=== PATIENT | female | born 1955 | race Caucasian/White ===

== ENCOUNTER → 2016-09-22 | Outpatient (CLI) | payer OTHER | LOC: FIMAGING 10:52 | DX: Z12.31 Encounter for screening mammogram for malignant neoplasm of breast (principal) | CPT/HCPCS: G0202 ==

== ENCOUNTER 2018-10-06 15:49 | Observation (INO) | payer OTHER ==
[2018-10-06] MEDS ORDERED: NS 1,000 ML IV ONE (17:07)
[2018-10-06] MEDS ORDERED: KETOROLAC 15 MG/1 ML SDV IVP ONE (17:08)
--- NOTE | 2018-10-06 17:12 | EDPHY ---
H & P Stated Complaint: abd pain x1 year Time Seen by Provider: 10/06/18 16:58 HPI/ROS: CHIEF COMPLAINT: Abdominal pain x1 year, worse today HISTORY OF PRESENT ILLNESS: 63-year-old female complaining of abdominal pain intermittently for the past 1 year typically worse in the morning described as as band across her abdomen however in the past 24 hr she notes worsening and more focal abdominal pain the right lower quadrant. No nausea or vomiting. Bowel movements are described as loose but not necessarily as diarrhea. No melena or hematochezia. No nausea or vomiting. No urinary abnormality. Last oral intake was dinner last night. PRIMARY CARE PROVIDER:Dr. Alanna Gibbs REVIEW OF SYSTEMS: 10 systems reviewed and negative with the exception of the elements mentioned in the history of present illness PAST MEDICAL & SURGICAL HISTORY: Depression. SOCIAL HISTORY:nonsmoker, PHYSICAL EXAM (Prior to examination, patient consented to physical exam, hands were washed and my usual and customary physical exam procedures followed) 1) GENERAL: Well-developed, well-nourished, alert and oriented. Appears uncomfortable 2) HEAD: Normocephalic, atraumatic 3) HEENT: Pupils equal, round, reactive to light bilaterally. Sclera anicteric. Nasopharynx, oropharynx, clear, no lesions. Dry mucous membranes. 4) NECK: Full range of motion, no meningeal signs. 5) LUNGS: Clear auscultation bilaterally, no wheezes, no rhonchi, no retractions. 6) HEART: Regular rate and rhythm, no murmur, no heave, no gallop. 7) ABDOMEN: No guarding, tender to palpation right lower quadrant, negative Sarmiento's, negative Rovsing's, negative peritoneal sign, 8) MUSCULOSKELETAL: Moving all extremities, no focal areas of tenderness, no obvious trauma. No peripheral edema or discoloration. 9) BACK: No CVA tenderness, no midline vertebral tenderness, no fluctuance, no step-off, no obvious trauma, no visual or palpable abnormality. 10) SKIN: No rash, no petechiae. 11) Psychiatric: Patient is oriented X 3, there is no agitation. DIFFERENTIAL DIAGNOSIS: My differential diagnosis includes, but is not limited to, acute appendicitis, acute cholecystitis, bowel obstruction, acute pancreatitis, ovarian torsion, gastritis and urinary tract infection. The patient understands that this diagnosis is provisional and can never be 100% accurate. This is a partial list of diagnoses considered. These considerations are based on history, physical exam, past history and reassessment. - Personal History Current Tetanus Diphtheria and Acellular Pertussis (TDAP): Yes - Medical/Surgical History Hx Asthma: No Hx Chronic Respiratory Disease: No Hx Diabetes: No Hx Cardiac Disease: No Hx Renal Disease: No Hx Cirrhosis: No Hx Alcoholism: No Hx HIV/AIDS: No Hx Splenectomy or Spleen Trauma: No Other PMH: rheumatic fever as child, depression - Social History Smoking Status: Former smoker Constitutional: Initial Vital Signs Temperature (C) 36.6 C 10/06/18 16:08 Heart Rate 61 10/06/18 16:08 Respiratory Rate 16 10/06/18 16:08 Blood Pressure 129/90 H 10/06/18 16:08 O2 Sat (%) 93 10/06/18 16:08 O2 Delivery Mode Room Air Allergies/Adverse Reactions: hydrocodone Allergy (Severe, Verified 10/06/18 21:04) Other-Enter Comments Home Medications: Medication Instructions Recorded FLUoxetine [Prozac 20 MG (RX)] 20 mg PO HS 03/22/12 LORazepam [Ativan 2 mg tab] 2 mg PO BIDMEAL 03/22/12 Cholecalciferol Vit D3 [Vitamin D3 1,000 units PO DAILY 10/06/18 (*)] Cyanocobalamin (Vitamin B-12) 1,000 mcg PO DAILY 10/06/18 [Vitamin B-12] Magnesium Oxide [Magnesium Oxide 400 mg PO HS 10/06/18 400 mg (*)] buPROPion SR [Wellbutrin 100mg SR 100 mg PO DAILY 10/06/18 (*)] Medical Decision Making - Diagnostics Imaging Results: Imaging Impressions Abdomen CT 10/06/18 17:45 Impression: Bilateral congenital UPJ obstructions, left greater than right with a slightly asymmetrically delayed left nephrogram. Might the left side have acutely worsened? Consider nuclear medicine Lasix washout renogram study. Results discussed with MARGO Walsh at 7:05 PM. General information for patients regarding this examination can be found at [email or web address]. If you have questions or comments about this report, please contact me at [phone] (hospital) or [phone] (cell). Abdomen Ultrasound 10/06/18 20:01 Impression: Normal gallbladder. Obscured pancreas. Results discussed with Moshe Lawrence at 8:55 PM. Pelvic/Renal Ultrasound 10/06/18 20:01 Impression: Normal postmenopausal pelvic ultrasound. No source for pain identified. Results discussed with Moshe Lawrence at 20:55 PM. Images reviewed by myself ED Course/Re-evaluation: 5:09 p.m.: Patient is focally and exquisitely tender to palpation right lower quadrant. Discussed with patient concerns over possible acute appendicitis. Recommended diagnostic studies including CT imaging of the abdomen pelvis. She remains NPO since yesterday evening. 7:45 p.m.: Re-evaluation patient is asymptomatic, discussed her diagnostic results with her. She feels comfortable being discharged. 8:03 p.m.: Called the patient's bedside as she was complaining of exquisite abdominal pain "all over". I reassessed the patient and she is diffusely tender to palpation all quadrants. Will administer analgesia. She has listed hydrocodone allergy but notes that she is able tolerate morphine. Will obtain vaginal ultrasound as well as gallbladder ultrasound and plan on more than likely admission. 8:10 p.m.: Consultation with on-call Urology Dr. Lam agrees to consult with the patient on admission. 9:00 p.m.: Re-evaluation, patient continues to complain of pain. Will plan on admission. 9:13 p.m.: Pain management has been challenging in this patient. I consulted with hospitalist Dr. Milian at this time will admit patient. - Data Points Laboratory Results: Laboratory Results 10/06/18 17:10 10/06/18 17:10 10/06/18 10/06/18 10/06/18 17:20 17:10 17:10 WBC 13.70 10^3/uL H 10^3/uL (3.80-9.50) RBC 4.91 10^6/uL 10^6/uL (4.18-5.33) Hgb 16.1 g/dL g/dL (12.6-16.3) Hct 45.7 % % (38.0-47.0) MCV 93.1 fL fL (81.5-99.8) MCH 32.8 pg pg (27.9-34.1) MCHC 35.2 g/dL g/dL (32.4-36.7) RDW 11.6 % % (11.5-15.2) Plt Count 245 10^3/uL 10^3/uL (150-400) MPV 9.5 fL fL (8.7-11.7) Neut % (Auto) 76.7 % H % (39.3-74.2) Lymph % (Auto) 13.4 % L % (15.0-45.0) [place] % (Auto) 8.3 % % (4.5-13.0) Eos % (Auto) 0.6 % % (0.6-7.6) Baso % (Auto) 0.6 % % (0.3-1.7) Nucleat RBC Rel Count 0.0 % % (0.0-0.2) Absolute Neuts (auto) 10.50 10^3/uL H 10^3/uL (1.70-6.50) Absolute Lymphs (auto) 1.84 10^3/uL 10^3/uL (1.00-3.00) Absolute Monos (auto) 1.14 10^3/uL H 10^3/uL (0.30-0.80) Absolute Eos (auto) 0.08 10^3/uL 10^3/uL (0.03-0.40) Absolute Basos (auto) 0.08 10^3/uL 10^3/uL (0.02-0.10) Absolute Nucleated RBC 0.00 10^3/uL 10^3/uL (0-0.01) Immature Gran % 0.4 % % (0.0-1.1) Immature Gran # 0.06 10^3/uL 10^3/uL (0.00-0.10) Sodium 135 mEq/L mEq/L (135-145) Potassium 4.3 mEq/L mEq/L (3.5-5.2) Chloride 106 mEq/L mEq/L (97-110) Carbon Dioxide 21 mEq/l L mEq/l (22-31) Anion Gap 8 mEq/L mEq/L (6-14) BUN 14 mg/dL mg/dL (7-23) Creatinine 1.0 mg/dL mg/dL (0.6-1.0) Estimated GFR 56 Glucose 108 mg/dL H mg/dL (70-100) Calcium 9.9 mg/dL mg/dL (8.5-10.4) Total Bilirubin 1.3 mg/dL mg/dL (0.1-1.4) Conjugated Bilirubin 0.4 mg/dL mg/dL (0.0-0.5) Unconjugated Bilirubin 0.9 mg/dL mg/dL (0.0-1.1) AST 22 IU/L IU/L (14-46) ALT 18 IU/L IU/L (9-52) Alkaline Phosphatase 81 IU/L IU/L (38-126) Total Protein 7.8 g/dL g/dL (6.3-8.2) Albumin 4.5 g/dL g/dL (3.5-5.0) Lipase 48 IU/L IU/L (23-300) Urine Color YELLOW Urine Appearance CLEAR Urine pH 5.0 (5.0-7.5) Ur Specific [place] 1.017 (1.002-1.030) Urine Protein NEGATIVE (NEGATIVE) Urine Ketones 1+ H (NEGATIVE) Urine Blood NEGATIVE (NEGATIVE) Urine Nitrate NEGATIVE (NEGATIVE) Urine Bilirubin NEGATIVE (NEGATIVE) Urine Urobilinogen NEGATIVE EU EU (0.2-1.0) Ur Leukocyte Esterase TRACE H (NEGATIVE) Urine RBC 1-3 /hpf /hpf (0-3) Urine WBC 5-10 /hpf H /hpf (0-3) Ur Epithelial Cells TRACE /lpf /lpf (NONE-1+) Urine Bacteria TRACE /hpf H /hpf (NONE SEEN) Urine Mucus TRACE /lpf /lpf (NONE-1+) Urine Glucose NEGATIVE (NEGATIVE) Medications Given: Discontinued Medications Sodium Chloride (Ns) 1,000 mls @ 0 mls/hr IV EDNOW ONE; Wide Open PRN Reason: Protocol Stop: 10/06/18 17:08 Last Admin: 10/06/18 17:36 Dose: 1,000 mls Ketorolac Tromethamine (Toradol) 15 mg IVP EDNOW ONE Stop: 10/06/18 17:09 Last Admin: 10/06/18 17:35 Dose: 15 mg Morphine Sulfate (Morphine) 4 mg IVP EDNOW ONE Stop: 03/10/19 20:02 Last Admin: 10/06/18 20:06 Dose: 4 mg Morphine Sulfate (Morphine) 4 mg IVP EDNOW ONE Stop: 10/06/18 20:40 Last Admin: 10/06/18 20:41 Dose: 4 mg Ondansetron HCl (Zofran) 4 mg IVP EDNOW ONE Stop: 10/06/18 20:47 Last Admin: 10/06/18 20:46 Dose: 4 mg Departure - Departure Disposition: [facility] Inpatient Acute Clinical Impression: UPJ obstruction, congenital Abdominal pain Qualifiers: Abdominal location: generalized Qualified Code(s): R10.84 - Generalized abdominal pain Condition: Fair Referrals: Alanna Gibbs MD [Primary Care Provider] - As per Instructions
[2018-10-06 17:26] LABS: PLATELET COUNT 245 10^3/uL (150-400)
[2018-10-06] MEDS ORDERED: IOPAMIDOL (ISOVUE-300) 100 ML BTL ONE (17:57)
[2018-10-06] MEDS ORDERED: ONDANSETRON 4 MG/2 ML VIAL ONE (20:44)
[2018-10-06] MEDS ORDERED: ONDANSETRON 4 MG/2 ML VIAL IVP ONE (20:46)
[2018-10-06] MEDS ORDERED: ONDANSETRON 4 MG/2 ML VIAL IVP PRN (22:48)
[2018-10-06] MEDS ORDERED: oxyCODONE IR 5 MG TAB PO PRN (22:48)
[2018-10-06] MEDS ORDERED: ONDANSETRON DISINTEGRATING 4 MG TAB PO PRN (22:48)
[2018-10-06] MEDS ORDERED: ACETAMINOPHEN 325 MG TAB PO PRN (22:48)
[2018-10-06] MEDS ORDERED: KETOROLAC 30 MG/1 ML SDV IVP ONE (23:30)
--- NOTE | 2018-10-07 01:52 | PDGENHP ---
History and Physical - Chief Complaint Abdominal pain - History of Present Illness 63 yo F w/ hx of depression presents with acute on chronic abdominal pain. The patient tells me she has been experiencing lower abdominal pain intermittently for about 1 year. Tonight, however, she experiences a bout of severe LLQ pain. She describes this as the worst pain of her life. Upon arrival to the ED she was exquisitely tender. At the time of my evaluation she is pain free after medication. CT evaluation was notable only for bilateral UPJ obstruction, which is likely congenital. It is unclear if this is the cause of her pain. The remainder of her evaluation is unremarkable. Case discussed with Dr. Milian; records reviewed and summarized above. History Information - Allergies/Home Medication List Allergies/Adverse Reactions: hydrocodone Allergy (Severe, Verified 10/06/18 21:04) Other-Enter Comments Home Medications: FLUoxetine [Prozac 20 MG (RX)] 20 mg PO HS 03/22/12 [Last Taken 10/05/18 21:00] LORazepam [Ativan 2 mg tab] 2 mg PO BIDMEAL 03/22/12 [Last Taken 10/06/18 12:00] Cholecalciferol Vit D3 [Vitamin D3 (*)] 1,000 units PO DAILY 10/06/18 [Last Taken 10/06/18 09:00] Cyanocobalamin (Vitamin B-12) [Vitamin B-12] 1,000 mcg PO DAILY 10/06/18 [Last Taken 10/06/18 09:00] Magnesium Oxide [Magnesium Oxide 400 mg (*)] 400 mg PO HS 10/06/18 [Last Taken 10/05/18 21:00] buPROPion SR [Wellbutrin 100mg SR (*)] 100 mg PO DAILY 10/06/18 [Last Taken 05/17 09:00] I have personally reviewed and updated: family history, medical history - Past Medical History Additional medical history: Depression - Surgical History Additional surgical history: . Knee arthroscopy - Family History Positive for: cancer (Colon) - Social History Smoking Status: Former smoker Review of Systems Review of Systems: ROS: 10pt was reviewed & negative except for what was stated in HPI & below Physical Exam Physical Exam: Temp Pulse Resp BP Pulse Ox 36.8 C 55 L 18 120/56 L 91 L 10/06/18 22:16 10/06/18 23:00 10/06/18 23:00 10/06/18 22:16 10/06/18 23:00 O2 (L/minute) 1 Constitutional: no apparent distress, not in pain Eyes: PERRL, EOMI Ears, Nose, Mouth, Throat: moist mucous membranes, no oral mucosal ulcers Cardiovascular: regular rate and rhythym, no murmur, rub, or gallop Respiratory: no respiratory distress, clear to auscultation Gastrointestinal: normoactive bowel sounds, soft, non-tender abdomen Skin: warm, normal color Musculoskeletal: full muscle strength, no muscle tenderness Neurologic: AAOx3, CN II-XII Intact Psychiatric: interacting appropriately, not anxious Lab Data & Imaging Review 10/06/18 17:10 10/06/18 17:10 WBC 13.70 10^3/uL (3.80-9.50) H 10/06/18 17:10 RBC 4.91 10^6/uL (4.18-5.33) 10/06/18 17:10 Hgb 16.1 g/dL (12.6-16.3) 10/06/18 17:10 Hct 45.7 % (38.0-47.0) 10/06/18 17:10 MCV 93.1 fL (81.5-99.8) 10/06/18 17:10 MCH 32.8 pg (27.9-34.1) 10/06/18 17:10 MCHC 35.2 g/dL (32.4-36.7) 10/06/18 17:10 RDW 11.6 % (11.5-15.2) 10/06/18 17:10 Plt Count 245 10^3/uL (150-400) 10/06/18 17:10 MPV 9.5 fL (8.7-11.7) 10/06/18 17:10 Neut % (Auto) 76.7 % (39.3-74.2) H 10/06/18 17:10 Lymph % (Auto) 13.4 % (15.0-45.0) L 10/06/18 17:10 [place] % (Auto) 8.3 % (4.5-13.0) 10/06/18 17:10 Eos % (Auto) 0.6 % (0.6-7.6) 10/06/18 17:10 Baso % (Auto) 0.6 % (0.3-1.7) 10/06/18 17:10 Nucleat RBC Rel Count 0.0 % (0.0-0.2) 10/06/18 17:10 Absolute Neuts (auto) 10.50 10^3/uL (1.70-6.50) H 10/06/18 17:10 Absolute Lymphs (auto) 1.84 10^3/uL (1.00-3.00) 10/06/18 17:10 Absolute Monos (auto) 1.14 10^3/uL (0.30-0.80) H 10/06/18 17:10 Absolute Eos (auto) 0.08 10^3/uL (0.03-0.40) 10/06/18 17:10 Absolute Basos (auto) 0.08 10^3/uL (0.02-0.10) 10/06/18 17:10 Absolute Nucleated RBC 0.00 10^3/uL (0-0.01) 10/06/18 17:10 Immature Gran % 0.4 % (0.0-1.1) 10/06/18 17:10 Immature Gran # 0.06 10^3/uL (0.00-0.10) 10/06/18 17:10 Sodium 135 mEq/L (135-145) 10/06/18 17:10 Potassium 4.3 mEq/L (3.5-5.2) 10/06/18 17:10 Chloride 106 mEq/L (97-110) 10/06/18 17:10 Carbon Dioxide 21 mEq/l (22-31) L 10/06/18 17:10 Anion Gap 8 mEq/L (6-14) 10/06/18 17:10 BUN 14 mg/dL (7-23) 10/06/18 17:10 Creatinine 1.0 mg/dL (0.6-1.0) 10/06/18 17:10 Estimated GFR 56 10/06/18 17:10 Glucose 108 mg/dL (70-100) H 10/06/18 17:10 Calcium 9.9 mg/dL (8.5-10.4) 10/06/18 17:10 Total Bilirubin 1.3 mg/dL (0.1-1.4) 10/06/18 17:10 Conjugated Bilirubin 0.4 mg/dL (0.0-0.5) 10/06/18 17:10 Unconjugated Bilirubin 0.9 mg/dL (0.0-1.1) 10/06/18 17:10 AST 22 IU/L (14-46) 10/06/18 17:10 ALT 18 IU/L (9-52) 10/06/18 17:10 Alkaline Phosphatase 81 IU/L (38-126) 10/06/18 17:10 Total Protein 7.8 g/dL (6.3-8.2) 10/06/18 17:10 Albumin 4.5 g/dL (3.5-5.0) 10/06/18 17:10 Lipase 48 IU/L (23-300) 10/06/18 17:10 Urine Color YELLOW 10/06/18 17:20 Urine Appearance CLEAR 10/06/18 17:20 Urine pH 5.0 (5.0-7.5) 10/06/18 17:20 Ur Specific [place] 1.017 (1.002-1.030) 10/06/18 17:20 Urine Protein NEGATIVE (NEGATIVE) 10/06/18 17:20 Urine Ketones 1+ (NEGATIVE) H 10/06/18 17:20 Urine Blood NEGATIVE (NEGATIVE) 10/06/18 17:20 Urine Nitrate NEGATIVE (NEGATIVE) 10/06/18 17:20 Urine Bilirubin NEGATIVE (NEGATIVE) 10/06/18 17:20 Urine Urobilinogen NEGATIVE EU (0.2-1.0) 10/06/18 17:20 Ur Leukocyte Esterase TRACE (NEGATIVE) H 10/06/18 17:20 Urine RBC 1-3 /hpf (0-3) 10/06/18 17:20 Urine WBC 5-10 /hpf (0-3) H 10/06/18 17:20 Ur Epithelial Cells TRACE /lpf (NONE-1+) 10/06/18 17:20 Urine Bacteria TRACE /hpf (NONE SEEN) H 10/06/18 17:20 Urine Mucus TRACE /lpf (NONE-1+) 10/06/18 17:20 Urine Glucose NEGATIVE (NEGATIVE) 10/06/18 17:20 Imaging Review: Imaging Impressions Abdomen CT 10/06/18 17:45 Impression: Bilateral congenital UPJ obstructions, left greater than right with a slightly asymmetrically delayed left nephrogram. Might the left side have acutely worsened? Consider nuclear medicine Lasix washout renogram study. Results discussed with MARGO Walsh at 7:05 PM. General information for patients regarding this examination can be found at [email or web address] [employer]. If you have questions or comments about this report, please contact me at [phone] (hospital) or [phone] (cell). Abdomen Ultrasound 10/06/18 20:01 Impression: Normal gallbladder. Obscured pancreas. Results discussed with Moshe Lawrence at 8:55 PM. Pelvic/Renal Ultrasound 10/06/18 20:01 Impression: Normal postmenopausal pelvic ultrasound. No source for pain identified. Results discussed with Moshe Lawrence at 20:55 PM. Assessment & Plan Assessment: 63 yo F presents with acute on chronic abdominal pain. Plan: 1. Acute on chronic abdominal pain - CT evaluation (personally reviewed/ interpreted) demonstrates only bilateral congenital UPJ obstructions. It is unclear if this is the source of her pain, which was been present for about a year but much worse on night of admission. The remainder of her evaluation is reassuring. - Admit for observation - Pain control - Urology (Dr. Lam) consulted for further evaluation 2. Leukocytosis - Possibly reactive, no signs of symptoms of infection at this time. - Monitor CBC 3. Depression - Continue home medications Diet - Regular Code - Full Ppx - LMWH Dispo - Admit under observation status
[2018-10-07 05:00] LABS: PLATELET COUNT 234 10^3/uL (150-400)
[2018-10-07] MEDS: KETOROLAC 15 MG/1 ML SDV IVP SCH ×2 (05:27→11:59)
--- NOTE | 2018-10-07 08:50 | SOAPPROG ---
[facility] Progress Note Assessment/Plan: Assessment: Possible left UPJ obstruction. Unclear at this time whether this is related to presenting symptoms. Plan: 1. CT urogram today (noncontrast & delayed imaging portions only) to further assess upper tract urothelial anatomy. 2. Consider nuclear renal scan thereafter. Full consult to follow. 10/07/18 08:50 Subjective: Chart information & last night's imaging reviewed. Objective: Vital Signs Temp Pulse Resp BP Pulse Ox 36.6 C 43 L 16 108/55 L 95 10/07/18 08:21 10/07/18 08:21 10/07/18 08:21 10/07/18 08:21 10/07/18 08:21 Laboratory Results 10/07/18 04:10 10/07/18 04:10 10/06/18 10/07/18 10/08/18 05:59 05:59 05:59 Intake Total 1040 Output Total 300 Balance 740 ICD10 Worksheet Patient Problems: Problems Problem Status Onset Abdominal pain Acute UPJ obstruction, congenital Acute
[2018-10-07] MEDS ORDERED: ENOXAPARIN 40 MG/0.4 ML SYR SC SCH (09:00)
[2018-10-07] MEDS ORDERED: IOPAMIDOL (ISOVUE-300) 100 ML BTL ONE (09:09)
[2018-10-07 11:51] VITALS: BP 122/71
--- NOTE | 2018-10-07 12:13 | ASMTCMCOM ---
CM Note CM Note Notes: Patient admitted with possible left UPJ Obstruction. Case discussed in daily rounds, no anticipated d/c needs at this time. CM available should needs arise. Plan: Independent Date Signed: 10/07/2018 12:12 PM Electronically Signed By:Fanny Hong RN
--- NOTE | 2018-10-07 15:37 | PDDCSUM ---
Discharge Summary Discharge Summary: Date of Admission: 10/06/2018 Date of Discharge: 10/07/2018 Consultants: urology (Dr Lam) Studies: CT abd/pelvis with IV contrast, abdominal US, pelvic US, CT urogram Discharge Diagnoses: 1. Acute abdominal pain, unclear etiology 2. Possible mild left UPJ obstruction 3. Sigmoid diverticulosis 4. Depression Brief Hospital Course: 63 yo F presented with acute worsening of somewhat chronic abdominal pain. Starts in bilateral flanks and radiates down towards groin. No association with urination. Imaging was obtained. Abdominal and pelvic ultrasound were normal. CT of her abdomen showed possible bilateral congenital UPJ obstruction. No kidney stones. Urology was consulted and CT urogram was obtained which showed no evidence of obstruction. It is unclear if her abdominal symptoms are related to her urinary system. Her acute abdominal symptoms had resolved. She was tolerating PO. Dr Lam will see her in follow up. Medications: Please refer to EMR for complete list. I wrote a prescription for oxycodone 5mg q6h PRN #10 with 0 refills. Follow Up Plan: 1. Obtain nuclear medicine renal scan as outpatient and follow up with Dr Lam in urology clinic Physical Exam: Vitals reviewed, afebrile. Alert and oriented, rrr, lungs clear, abdomen soft and nontender, no rashes, normoactive bowel sounds.
--- NOTE | 2018-10-07 16:04 | ASMTLACE ---
[facility] Length of stay for Answers: Less than 1 day current admission Acuity / Level of Answers: No Care: Did the patient have an inpatient admission? # of Emergency department Answers: 1-2 visits in the last 6 months Social determinants Answers: Mental health diagnosis (anxiety, depression, pers onality disorders, etc.) Score: 4 Date Signed: 10/07/2018 04:04 PM Electronically Signed By:Fanny Hong RN
== END 2018-10-07 17:43 | disposition home or self-care (01) ==
LOC: F1N 22:08
PROVIDERS: ADMIT Internal Medicine; ATTEND Internal Medicine
DX: R10.84 Generalized abdominal pain (principal); K57.30 Diverticulosis of large intestine without perforation or abscess without bleeding; F32.9 Major depressive disorder, single episode, unspecified; Z87.891 Personal history of nicotine dependence; N13.9 Obstructive and reflux uropathy, unspecified
CPT/HCPCS: 74177; 74178; 76705; 76856; G0378; J1650; J1885; J2270; J2405; Q9967

== ENCOUNTER → 2018-12-11 | Outpatient (CLI) | payer OTHER | LOC: FIMAGING 09:35 | PROVIDERS: ATTEND Family Medicine | DX: Z12.31 Encounter for screening mammogram for malignant neoplasm of breast (principal) ==